=== PATIENT | female | born 1985 | race African-American/Black ===

== ENCOUNTER 2016-07-23 02:34 | Emergency (ER) | payer OTHER ==
[~2016-07-23] VITALS: Ht 165.1 cm; Wt 108.0 kg
[2016-07-23] MEDS ORDERED: DIAZEPAM 5 MG TABLET PO ONE (08:00)
[2016-07-23 09:11] VITALS: BP 141/68
== END 2016-07-23 09:26 | disposition home or self-care (01) ==
LOC: ER 08:12
DX: S10.90XA Unspecified superficial injury of unspecified part of neck, initial encounter (principal); F17.210 Nicotine dependence, cigarettes, uncomplicated; Z91.040 Latex allergy status; V49.9XXA Car occupant (driver) (passenger) injured in unspecified traffic accident, initial encounter; Y93.89 Activity, other specified; Y92.410 Unspecified street and highway as the place of occurrence of the external cause; Y99.8 Other external cause status
CPT/HCPCS: 72125; 72131; 81025; 99284

== ENCOUNTER 2016-09-25 11:38 | Emergency (ER) | payer MEDICAID ==
[~2016-09-25] VITALS: Ht 165.1 cm; Wt 113.0 kg
[2016-09-25 17:08] LABS: BASOPHILS % 1.1 % (0.0-2.0); CHLORIDE 107 mEq/L (98-107); EOSINOPHILS % 3.2 % (0.0-5.0); HEMATOCRIT. 41.3 % (36.0-48.0); HEMOGLOBIN. 13.4 g/dL (12.0-16.0); LYMPHOCYTES % 30.1 % (20.0-50.0); MEAN CORPUSCULAR HEMOGLOBIN 25.9 pg (28.0-32.0); MEAN CORPUSCULAR VOLUME 79.7 fL (81.0-99.0); MEAN PLATELET VOLUME 7.5 fl (7.4-10.4); MONOCYTES % 7.8 % (2.0-8.0); NEUTROPHILS % 57.8 % (40.0-76.0); PLATELET 415 x1000/uL (130-400); RED BLOOD CELL COUNT 5.18 mill/uL (4.2-5.4); RED CELL DISTRIBUTION WIDTH 14.7 % (11.6-14.6)
[2016-09-25 17:17] LABS: CARBON DIOXIDE 25 mEq/L (21-32)
[2016-09-25 17:21] LABS: B-HCG QUANTITATIVE < 1 mIU/mL (<3)
[2016-09-25] MEDS ORDERED: IBUPROFEN 600MG TABLET PO ONE (17:30)
[2016-09-25] MEDS ORDERED: ACETAMINOPHEN WITH CODEINE 300/30MG TABLET PO NR (18:15)
[2016-09-25 20:51] VITALS: BP 120/64
== END 2016-09-25 21:11 | disposition home or self-care (01) ==
LOC: ER 16:16
DX: N93.8 Other specified abnormal uterine and vaginal bleeding (principal); N94.6 Dysmenorrhea, unspecified; F17.210 Nicotine dependence, cigarettes, uncomplicated; Z98.890 Other specified postprocedural states
CPT/HCPCS: 36415; 76830; 76856; 80048; 84702; 85025; 86850; 86900; 99285